=== PATIENT | female | born 1980 | race Caucasian/White ===

== ENCOUNTER 2021-04-13 12:00 | Emergency (ER) | payer OTHER, BC ==
[~2021-04-13] VITALS: Ht 157.5 cm; Wt 65.8 kg
[~2021-04-13 12:00] MED LIST: FERROUS SULFAT325 MG PO; PRENATAL VITAM1 EACH PO
[2021-04-13] MEDS ORDERED: FLUOXETINE HCL40 MG PO (12:42)
== END 2021-04-13 14:00 | disposition home or self-care (01) ==
LOC: ED 12:00
DX: S51.812A Laceration without foreign body of left forearm, initial encounter (principal); Z23 Encounter for immunization; W26.0XXA Contact with knife, initial encounter
CPT/HCPCS: 12002; 90471; 90715; 99282-25